=== PATIENT | female | born 1950 | race Caucasian/White ===

== ENCOUNTER → 2017-07-18 | Outpatient (CLI) | payer MEDICARE, BC | LOC: GMAL 10:10 | PROVIDERS: ATTEND Family Medicine | DX: E53.8 Deficiency of other specified B group vitamins (principal); R53.83 Other fatigue; M25.50 Pain in unspecified joint; E55.9 Vitamin D deficiency, unspecified ==

== ENCOUNTER → 2017-09-24 | Outpatient (CLI) | payer MEDICARE, BC | END | disposition home or self-care (01) | LOC: GMAL 17:23 | PROVIDERS: ATTEND Family Medicine | DX: M25.50 Pain in unspecified joint (principal); R51 Headache ==

== ENCOUNTER → 2017-09-26 | Outpatient (CLI) | payer MEDICARE, BC ==
--- NOTE | 2017-09-26 20:25 | MRI ---
EXAM DESCRIPTION: Brain w/wo Contrast CLINICAL HISTORY: HEADACHE COMPARISON: CT head 09/12/2014 TECHNIQUE: Multiplanar images of the brain were obtained without and with the administration of intravenous contrast FINDINGS: Scattered foci of increased T2 signal intensity do not exert significant mass effect on surrounding structures. No sagittal FLAIR sequences are submitted but there are corresponding low signal foci on T1-weighted images and some of these are adjacent to the corpus callosum and have a radiating pattern suggestive of Farooq's fingers. Multiple sclerosis is not excluded. None enhance abnormally.. No other abnormal enhancement is seen. The paranasal sinuses are clear. The IACs and CP angles appear normal. There is no evidence of acute mass, mass effect, midline shift or hemorrhage. No focal abnormal extra-axial fluid collection is seen. The ventricles, basal cisterns and extra-axial fluid spaces are normal in size and configuration. Brain parenchymal signal is otherwise normal. IMPRESSION: No acute abnormalities. Multiple sclerosis is not excluded. Alternatively, findings could reflect sequela of prior insult, possibly on the basis of small vessel disease. Electronically signed by: Albaro Llanes 09/26/2017 8:24 PM [facility]
== END ==
LOC: MRI 14:56
PROVIDERS: ATTEND Family Medicine
DX: R51 Headache (principal)

== ENCOUNTER → 2017-11-25 | Outpatient (CLI) | payer MEDICARE, BC | LOC: GMAL 11:33 | PROVIDERS: ATTEND Family Medicine | DX: R53.83 Other fatigue (principal) ==

== ENCOUNTER → 2017-12-23 | Outpatient (CLI) | payer MEDICARE, BC | LOC: GMATM 15:05 | PROVIDERS: ATTEND Nurse Practitioner Family | DX: J06.9 Acute upper respiratory infection, unspecified (principal) ==

== ENCOUNTER → 2018-02-14 | Outpatient (CLI) | payer MEDICARE ==
--- NOTE | 2018-02-14 11:34 | CT ---
EXAM DESCRIPTION: Abdoment/Pelvis w/o Contrast CLINICAL HISTORY: ABD PAIN COMPARISON: None Available. TECHNIQUE: Contiguous axial images of the abdomen and pelvis were obtained followed by reconstruction images. This exam was performed according to our departmental dose-optimization program, which includes automated exposure control, adjustment of the mA and/or kV according to patient size and/or use of iterative reconstruction technique. FINDINGS: Gallbladder is surgically absent. There is heterogeneous decreased attenuation of the liver that may reflect fatty infiltration. There are postoperative changes. Moderate stool is in the colon. No other acute abnormality. There is no hydronephrosis or renal stones. Adrenal glands are within normal limits. Aorta is of normal caliber and tapering. There is no free fluid in the abdomen or pelvis. There is no bowel obstruction. There is no stranding of the mesenteric fat to suggest an inflammatory response. IMPRESSION: No acute intra-abdominal abnormality. Electronically signed by: Albaro Llanes 02/14/2018 11:32 AM CDT
== END ==
LOC: LAB.O 10:39
PROVIDERS: ATTEND Nurse Practitioner Family
DX: R35.0 Frequency of micturition (principal); R10.84 Generalized abdominal pain

== ENCOUNTER → 2018-06-22 | Outpatient (CLI) | payer MEDICARE | LOC: GMAJ 17:44 | PROVIDERS: ATTEND Family Medicine | DX: E55.9 Vitamin D deficiency, unspecified (principal) ==

== ENCOUNTER 2018-07-03 05:45 | Day surgery (SDC) | payer MEDICARE ==
--- NOTE | 2018-07-02 17:25 | SSS ---
CHIEF COMPLAINT: Abdominal bloating and due for screening colonoscopy. HISTORY OF PRESENT ILLNESS: Ms. Jones is a 68 year-old female who presented to my office for routine followup. It was noted that she was due for a colonoscopy. She has been experiencing some abdominal bloating and distention, but no blood in her stool or other changes in her bowel habits. She had a colonoscopy by Dr. Hatch in 2000 that showed no polyps. She had a colonoscopy by this physician in August of 2003 that was also unremarkable. She had a colonoscopy by Dr. Simmons where she had a small polyp removed form her cecum and also had melanosis coli in 2008. She had a colonoscopy by Dr. Zendejas in April of 2014 that showed multiple tubular adenomas that were removed and melanosis coli. She is due for a repeat colonoscopy. Risks and benefits were discussed and she is agreeable with proceeding. PAST MEDICAL HISTORY: 1. Hyperlipidemia. 2. Hypertension. She had a nuclear stress test in September 2009 that showed normal perfusion. She had an echocardiogram in September 2010 that showed an ejection fraction of 56% with left atrium of 3.7 cm and minima left ventricular hypertrophy and a calcified mitral valve. 3. Longstanding dyspepsia. 4. H. pylori positive in June of 2008 with documented clearance on . 5. WHITNEY diagnosed with biopsy at the time of her laparoscopic cholecystectomy in May of 2011. 6. Left basilic vein thrombosis after 4 IV sites in her left arm over 24 hours. 7. Chronic headaches. 8. Chronic neck pain. 9. History of breast cancer diagnosed in March of 2017. 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 She completed radiation therapy in May 2017. Her is her medical Power of Ec Teacher. She does not have an Advance Directive. PAST SURGICAL HISTORY: 1. Appendectomy in with her hysterectomy and bilateral salpingo- oophorectomy at the time of the hysterectomy. 2. Laparoscopic cholecystectomy in May 2011. 3. Left knee arthroscopy by Dr. Sims where they worked on her lateral meniscus in 2003. 4. Hemorrhoidectomy. 5. Right breast lumpectomy in 1989. 6. Bladder suspension in September 2008. 7. Hemorrhoidal treatment by laser in August and September 2010. 8. Left breast stereotactic vacuum assisted biopsy of ductal carcinoma in situ , estrogen receptor positive, progesterone receptor negative by Dr. Oliver Carrillo in March 2017. 9. Left breast lumpectomy for DCIS by Dr. Oliver Carrillo in March 2017. 10. Right labial sebaceous cyst drained in her office by Dr. Carmen Lundy on 08/08/17. 11. Colonoscopies as above. CURRENT MEDICATIONS: 1. Venlafaxine. 2. Lotrel. 3. Metoprolol. 4. Estazolam. 5. Tamoxifen. 6. Nortriptyline. ALLERGIES: FAMILY HISTORY: Father at 56 from a myocardial infarction. Mother at 64 from a myocardial infarction. She has 2 brothers, one from colon cancer. Three sisters, one from breast cancer. She has 1 son who has a history of ITT and 1 daughter who is healthy with asthma. SOCIAL HISTORY: She is retired. She was an x-ray electroplating technician at one time. She has been and remarried. She does not smoke but smoked in the past. She smoked for only 5 years having quit in 1987. She does not consume alcohol. REVIEW OF SYSTEMS: Negative except as per History of Present Illness. PHYSICAL EXAMINATION: VITAL SIGNS: Blood pressure 124/60, height 5 feet 8 inches tall, weight 157, pulse 87. GENERAL: She is awake and alert in no acute distress. HEENT: Unremarkable. NECK: Supple. CHEST: Lungs are clear. CARDIOVASCULAR: Regular rate and rhythm. ABDOMEN: Soft, non-tender. EXTREMITIES: Without edema. RECTAL: Exam is deferred until time of colonoscopy. ASSESSMENT: 1. Family history of colon cancer in a brother. 2. Need for screening colonoscopy. 3. History of colon polyps. PLAN: Colonoscopy on 07/03/18. #[id number] [facility]
[2018-07-03] MEDS ORDERED: LACTATED RINGERS 1,000 ML ONE (06:22)
[2018-07-03] MEDS ORDERED: PROPOFOL 200 MG/20 ML VIAL IV ONE (07:00)
[2018-07-03] MEDS ORDERED: LIDOCAINE 1% 10 ML VIAL INJ ONE (07:00)
[2018-07-03] MEDS ORDERED: LACTATED RINGERS 1,000 ML BAG IV ONE (07:10)
[2018-07-03] MEDS ORDERED: fentaNYL CITRATE INJ 50 MCG/ML AMP ONE (07:20)
--- NOTE | 2018-07-03 08:57 | OP ---
DATE OF PROCEDURE: 07/03/18 PREOPERATIVE DIAGNOSIS: 1. History of colonic polyps. 2. Family history of colon cancer. POSTOPERATIVE DIAGNOSIS: 1. Melanosis coli. 2. Internal and external hemorrhoids. 3. Otherwise normal colonoscopy to the cecum. PROCEDURE: 1. Colonoscopy. SURGEON: Nate Hughes MD. ESTIMATED BLOOD LOSS: None. COMPLICATIONS: No immediate complications. ANESTHESIA: Propofol 430 mg and fentanyl 2 mL administered via Cipriano Uribe CRNA. TECHNIQUE: After informed consent was obtained from the patient, the patient was taken to the Endoscopy Suite and placed in the left lateral decubitus position. Incremental doses of propofol and fentanyl were given until adequate sedation was obtained. Digital rectal examination was performed, which other than the hemorrhoids was unremarkable. The colonoscope was then advanced into the patient's rectum and up through the sigmoid, descending, transverse and ascending colon to the level of the cecum. Relatively extensive looping was noted in the ascending colon, but the cecum was ultimately reached by placing her on her back and lots of left lower quadrant pressure. The terminal ileum could not be entered. Photogram of the cecum was taken. Overall, the bowel prep was quite good. The melanosis coli was quite evident in the proximal colon. It was much less evident in her distal colon. The colonoscope was then slowly withdrawn taking great care to visualize all judge of the colon in a 360 degree fashion as best as possible. The looping made it a little bit difficult to visualize about a 5 cm portion of her proximal transverse colon. However, I went through this area 3 to 4 times and did not see anything obvious. The rest of the colon was easy to visualize. Retroflexion was performed and showed grade 2 to 3 internal hemorrhoids. The colonoscope was then unretroflexed and air was suctioned out of the patient's rectum. The colonoscope was removed from the patient. The patient tolerated the procedure well. PLAN: Followup in my office in 7 to 10 days. We will consider repeat endoscopy for screening purposes only in 8 to 10 years. #[id number] [facility]
[2018-07-03 09:14] VITALS: BP 123/72; TEMP 97.8; O2SAT 98
== END 2018-07-03 09:10 | disposition home or self-care (01) ==
LOC: AMB 05:45
PROVIDERS: ATTEND Family Medicine
DX: Z09 Encounter for follow-up examination after completed treatment for conditions other than malignant neoplasm (principal); K63.89 Other specified diseases of intestine; K64.4 Residual hemorrhoidal skin tags; K64.2 Third degree hemorrhoids; I10 Essential (primary) hypertension; K21.9 Gastro-esophageal reflux disease without esophagitis; E78.5 Hyperlipidemia, unspecified; G89.29 Other chronic pain; M54.2 Cervicalgia; Z86.010 Personal history of colon polyps; Z87.891 Personal history of nicotine dependence; Z80.0 Family history of malignant neoplasm of digestive organs; Z79.899 Other long term (current) drug therapy
CPT/HCPCS: 00811; 45378; J3010; J3490; J7120

== ENCOUNTER → 2018-12-23 | Outpatient (CLI) | payer MEDICARE | LOC: GMAHI 17:58 | PROVIDERS: ATTEND Nurse Practitioner Family | DX: L65.9 Nonscarring hair loss, unspecified (principal) ==

== ENCOUNTER → 2019-02-17 | Outpatient (CLI) | payer MEDICARE ==
--- NOTE | 2019-02-18 11:06 | CT ---
EXAM DESCRIPTION: Internal Auditory Canal CT CLINICAL HISTORY: 68 years Female, SUPERIOR CANAL DEHISCENCE COMPARISON: None. TECHNIQUE: This exam was performed according to our departmental dose-optimization program, which includes automated exposure control, adjustment of the mA and/or kV according to patient size and/or use of iterative reconstruction technique. Thin section high-resolution images imaging of the petrous ridges with MPR thin section reformatted axial and coronal images. FINDINGS: No gross soft tissue abnormality on this thin section noncontrast imaging of the petrous ridges and adjacent posterior fossa is seen. On the right, several small lateral posterior superior mastoid air cells are opacified consistent with minimal mastoiditis. This does not extend into the region of the mastoid tip or medially towards the epitympanic recess or middle ear cavity. The external auditory canal middle ear cavity and epitympanic recess and middle ear ossicles are normal in appearance with normal aeration. The cochlear and vestibular apparatus and IAC appear normal. There is no evidence of superior canal dehiscence best visualized on the thin section coronal imaging with the superior margin of the petrous ridge and layer of bone lying cephalad to the superior canal with no uncovering of the semicircular canal. The course of the facial nerve canal is normal. On the left, the mastoid air cell system and middle ear cavity and epitympanic recess are unremarkable without evidence of mastoiditis or air cell opacification. The IAC cochlear apparatus is normal. The posterior and superior semicircular canals are normal with no evidence of superior canal dehiscence. The left lateral semicircular canal is abnormal in appearance and appears to represent an enlargement and extension of the utricle of the semicircular canal apparatus. A well-formed lateral semicircular canal is not identified as noted on the opposite right side. The soft tissue defect of the utricle is estimated at 6 x 7 x 3.5 mm in diameter and approximately twice the size as that seen on the right. 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 The superior and posterior semicircular canal appear normally formed with no evidence of dehiscence. IMPRESSION: 1. Essentially normal bony anatomy and no evidence of superior canal dehiscence on the right with the small amount of superior lateral and posterior mastoiditis and opacification. 2. 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 No evidence of superior canal dehiscence noted. 3. The cochlear apparatus as well as middle ear structures and external auditory canals are normal bilaterally. Electronically signed by: Christian Miller MD 02/18/2019 11:04 AM CDT
== END ==
LOC: CT 13:06
PROVIDERS: ATTEND Otolaryngology Otology & Neurotology
DX: H93.A9 Pulsatile tinnitus, unspecified ear (principal); Q17.8 Other specified congenital malformations of ear; H83.8X2 Other specified diseases of left inner ear

== ENCOUNTER → 2019-10-25 | Outpatient (CLI) | payer MEDICARE ==
--- NOTE | 2019-10-25 14:41 | MRI ---
EXAM DESCRIPTION: Knee,Left CLINICAL HISTORY: Pain in left knee COMPARISON: None Available. TECHNIQUE: MRI of the left knee is performed according to our usual protocol with multiplanar multi sequence imaging. FINDINGS: Moderate knee joint effusion. Complex popliteal cyst with multiple loculations. Ganglion cyst extends cephalad from the joint line posteriorly and measures 4.4 cm x 1.8 cm in size and is likely related to large lateral meniscus tear. The lateral meniscus is markedly attenuated mid body and posterior horn. I do not detect displaced fragment suspected there may have been prior partial meniscectomy. If not this is health and safety representative of a very severe chronic degenerative tear. Extensive grade 4 chondrosis on both sides of the joint in the lateral compartment. Degenerative mucoid change of the medial meniscus without full-thickness tear. Moderate grade 2/3 chondrosis medial compartment. Extensive grade 3/4 chondrosis involving the patellofemoral compartment. Cruciate and collateral ligaments intact. IMPRESSION: 1. Severe degenerative changes lateral compartment including lateral meniscus tear with related multilocular ganglion/parameniscal cyst. This cyst is the palpable abnormality along with a complex popliteal cyst. Electronically signed by: Ernesto Eli MD 10/25/2019 2:40 PM [facility]
== END ==
LOC: MRI 10:52
PROVIDERS: ATTEND Family Medicine
DX: M17.12 Unilateral primary osteoarthritis, left knee (principal); S83.282A Other tear of lateral meniscus, current injury, left knee, initial encounter; M71.22 Synovial cyst of popliteal space [Baker], left knee

== ENCOUNTER → 2020-01-31 | Outpatient (CLI) | payer MEDICARE | LOC: GMAL 15:59 | PROVIDERS: ATTEND Family Medicine | DX: R53.83 Other fatigue (principal); R60.0 Localized edema ==

== ENCOUNTER 2020-05-04 11:40 | Emergency (ER) | payer MEDICARE ==
[2020-05-04] MEDS ORDERED: MORPHINE SULFATE INJ 10 MG/ML VIAL IV ONE (11:51)
[2020-05-04] MEDS ORDERED: ASPIRIN (CHEWABLE) 81 MG TAB PO ONE (11:51)
[2020-05-04] MEDS ORDERED: ONDANSETRON INJ 4 MG/2 ML VIAL IV ONE (11:51)
--- NOTE | 2020-05-04 11:54 | ED.PDOC ---
History of Present Illness - General Time Seen by Provider: 05/04/20 11:45 Source: patient, RN notes reviewed, Vital Signs reviewed Exam Limitations: no limitations - History of Present Illness Initial Comments: Patient is a 69-year-old female who presents the ED for chest pain. States she has had central chest pain that radiates to her left chest for the past 5 days. Has felt short of breath at times, but denies nausea, cough or fever. Denies any previous cardiac history. Pain is no worse with exertion or movement. Allergies/Adverse Reactions: Allergies Gemfibrozil [From Lopid] Allergy (Unknown, Verified 05/04/20 13:00) found list on a old H&P Non Fat Milk Allergy (Verified 05/04/20 13:00) Home Medications: Ambulatory Orders Amlodipine Besylate-Benazepril [Lotrel 5-20 mg] 1 cap PO DAILY 03/19/14 Esomeprazole Magnesium [Nexium] 40 mg PO DAILY 03/19/14 Metoprolol Tartrate [Lopressor] 50 mg PO DAILY 03/19/14 Venlafaxine HCl [Effexor] 37.5 mg PO DAILY 03/19/14 Amoxicillin [Amoxil] 500 mg PO TID 06/29/18 B-Complex W/ Folic Acid [B Complex] 1 tab PO BEDTIME 06/29/18 Cholecalciferol [D 1000] 1,000 unit PO DAILY 06/29/18 Docusate Sodium [Stool Softener] 100 mg PO DAILY 06/29/18 Estazolam 1 - 1.5 mg PO BEDTIME 06/29/18 Nortriptyline HCl [Nortriptyline Hydrochlori] 50 mg PO BEDTIME 06/29/18 Probiotic Product [Probiotic] 1 tab PO DAILY 06/29/18 Tamoxifen Citrate 20 mg PO DAILY 06/29/18 Review of Systems - Review of Systems Constitutional: Denies: chills, fever, weakness EENTM: Denies: nose congestion, throat pain Respiratory: States: short of breath. Denies: cough, wheezing Cardiology: States: chest pain. Denies: edema, palpitations, syncope Gastrointestinal/Abdominal: Denies: abdominal pain, diarrhea, nausea, vomiting Musculoskeletal: Denies: back pain, neck pain Skin: States: no symptoms reported Neurological: Denies: headache, paresthesia Hematologic/Lymphatic: Denies: blood clots, easy bleeding All other Systems: Reviewed and Negative Past Medical History (General) - Patient Medical History Hx Seizures: No Hx Stroke: No Hx Dementia: No Hx Asthma: No Hx of COPD: No Hx Cardiac Disorders: No Hx Congestive Heart Failure: No Hx Pacemaker: No Hx Hypertension: Yes Hx Thyroid Disease: No Hx Diabetes: No Hx Gastroesophageal Reflux: No Hx Renal Disease: No Hx of HIV: No Hx MRSA: No MRSA Source:: Wound - Vaccination History Hx Influenza Vaccination: Yes - Social History Hx Tobacco Use: Yes Hx Alcohol Use: No Hx Substance Use: No Hx Physical Abuse: No Hx Emotional Abuse: No Family Medical History - Family History Mother Family History: Unknown Physical Exam - Physical Exam General Appearance: Alert, Comfortable, No apparent distress Neck: full range of motion, supple Respiratory: lungs clear, normal breath sounds, no respiratory distress, no accessory muscle use, respiratory distress, other - Chest wall is tender to palpation in the substernal and left anterior chest areas Cardiovascular/Chest: normal peripheral pulses, regular rate, rhythm, no edema, no murmur Gastrointestinal/Abdominal: non tender, soft, no pulsatile mass Back Exam: no CVA tenderness, no vertebral tenderness Extremity: normal range of motion, non-tender, normal inspection, no pedal edema Neurologic: no motor/sensory deficits, alert, normal mood/affect Skin Exam: normal color, warm/dry Progress - Progress Progress: 05/04/20 1255 Patient presents with several day history of chest tightness and states her arms and legs feel heavy. Vital signs are reassuring. Chest x-ray EKG and labs are reassuring including a normal troponin. Since her pain is been going on for several days I doubt ACS at this time. Patient feels improved and comfortable going home. I have asked her to follow-up with her PCP in 1 to 2 days for continued outpatient evaluation and referral for further cardiology evaluation. Strict return precautions given. - Results/Orders Results/Orders: EKG- NSR, rate 97, nml intervals, no ST abnormality Chest xray EXAM DESCRIPTION: Chest,1 View CLINICAL HISTORY: 69 years Female, chest pain COMPARISON: March 19, 2014 FINDINGS: One view/radiograph Heart size and pulmonary vessels are within normal limits. There is no pneumothorax or pleural effusion. The lungs are clear bilaterally. The soft tissues are unremarkable. No acute osseous findings. IMPRESSION: No acute cardiopulmonary abnormality. 05/04/20 11:50 IV:Start .ONCE 05/04/20 12:00 EKG .ONCE Laboratory Results - last 24 hr 05/04/20 05/04/20 05/04/20 11:50 11:50 11:50 WBC 6.1 RBC 4.17 L Hgb 12.1 Hct 36.2 MCV 86.8 MCH 29.1 MCHC 33.5 RDW 14.2 Plt Count 211 MPV 7.8 Absolute Neuts (auto) 3.40 Absolute Lymphs (auto) 2.10 Absolute Monos (auto) 0.40 Absolute Eos (auto) 0.20 Absolute Basos (auto) 0.00 Neutrophils % 56.2 Lymphocytes % 34.4 Monocytes % 6.3 Eosinophils % 2.5 Basophils % 0.6 Sodium 132 L Potassium 3.9 Chloride 100 L Carbon Dioxide 21 Anion Gap 14.9 BUN 12 Creatinine 1.17 BUN/Creatinine Ratio 10.3 Random Glucose 120 H Serum Osmolality 265.5 L Calcium 8.9 Total Bilirubin 0.6 AST 55 H ALT 37 Alkaline Phosphatase 57 Troponin I 0.02 B-Natriuretic Peptide 29.7 Serum Total Protein 7.1 Albumin 4.2 Globulin 2.9 Albumin/Globulin Ratio 1.4 Lipase 43 Departure - Departure Clinical Impression: Atypical chest pain Time of Disposition: 12:57 Disposition: Discharge to Home or Self Care Condition: Good Departure Forms: ED Discharge - Pt. Copy, Patient Portal Self Enrollment Instructions: Chest Pain (DC) Diet: resume usual diet Activity: increase activity as tolerated Referrals: Nate Hughes III, MD [Primary Care Provider] - 1-2 Days Home Medications: Ambulatory Orders Amlodipine Besylate-Benazepril [Lotrel 5-20 mg] 1 cap PO DAILY 03/19/14 Esomeprazole Magnesium [Nexium] 40 mg PO DAILY 03/19/14 Metoprolol Tartrate [Lopressor] 50 mg PO DAILY 03/19/14 Venlafaxine HCl [Effexor] 37.5 mg PO DAILY 03/19/14 Amoxicillin [Amoxil] 500 mg PO TID 06/29/18 B-Complex W/ Folic Acid [B Complex] 1 tab PO BEDTIME 06/29/18 Cholecalciferol [D 1000] 1,000 unit PO DAILY 06/29/18 Docusate Sodium [Stool Softener] 100 mg PO DAILY 06/29/18 Estazolam 1 - 1.5 mg PO BEDTIME 06/29/18 Nortriptyline HCl [Nortriptyline Hydrochlori] 50 mg PO BEDTIME 06/29/18 Probiotic Product [Probiotic] 1 tab PO DAILY 06/29/18 Tamoxifen Citrate 20 mg PO DAILY 06/29/18
--- NOTE | 2020-05-04 12:23 | RAD ---
EXAM DESCRIPTION: Chest,1 View CLINICAL HISTORY: 69 years Female, chest pain COMPARISON: March 19, 2014 FINDINGS: One view/radiograph Heart size and pulmonary vessels are within normal limits. There is no pneumothorax or pleural effusion. The lungs are clear bilaterally. The soft tissues are unremarkable. No acute osseous findings. IMPRESSION: No acute cardiopulmonary abnormality. Electronically signed by: Robert Yo MD 05/04/2020 12:21 PM CDT
[2020-05-04 13:15] VITALS: BP 139/61; TEMP 97.3; O2SAT 98
== END 2020-05-04 13:16 | disposition home or self-care (01) ==
LOC: ER 11:40
DX: R07.89 Other chest pain (principal); I10 Essential (primary) hypertension; Z87.891 Personal history of nicotine dependence
CPT/HCPCS: 71045; 80053; 83690; 83880; 84484; 85025; 93005; J2270; J2405

== ENCOUNTER → 2020-06-07 | Outpatient (CLI) | payer MEDICARE ==
--- NOTE | 2020-06-07 20:06 | US ---
EXAM DESCRIPTION: Abdomen,Complete: Ultrasound. CLINICAL HISTORY: 69 years FemaleABNORMAL RESULTS OF LIVER FUNCTION STUDIES COMPARISON: None Available. TECHNIQUE: Transabdominal scanning: grayscale and Doppler modes. FINDINGS: Gallbladder: Surgically removed. No fluid in the gallbladder fossa. Abdomen was Non-tender with transducer pressure. Common bile duct: caliber 5.7 mm upper normal limits. Liver: Increased echogenicity; contour liver capsule smooth where seen. No fluid around the liver. Intrahepatic biliary ducts normal caliber. Doppler hepatopedal flow and normal caliber portal vein 0.2 mm.. Long axis right lobe 14.0 cm. Pancreas: normal size and increased echogenicity. Duct not seen. Complete abdominal aorta: Normal caliber from the proximal segment to the distal bifurcation.. IVC: visualized and normal caliber. Right kidney: long axis measures 8.2 cm; volume 85.1 mL.. Normal cortical echogenicity. Normal cortical thickness. No echogenic stones; no hydronephrosis. Minimal capsular lobulation. Left kidney: long axis measures 8.6 cm; volume 105.2 mL.. Minimally increased cortical echogenicity.. Normal cortical thickness. No echogenic stones; no hydronephrosis. Minimal capsular lobulation. Spleen: Normal. No focal lesions.. 9.7 cm long axis. Other: None. IMPRESSION: 1. Fatty liver but not enlarged. Physiologic vascularity. Otherwise unremarkable. Fatty pancreas but normal size. Duct not seen. No ascites. 2. Gallbladder surgically absent. No fluid in the gallbladder fossa. Upper normal caliber common bile duct. Spleen is unremarkable. 3. Bilateral kidneys with age-related changes but otherwise negative. Normal caliber of the abdominal aorta and IVC. Electronically signed by: Albaro Romano MD 06/07/2020 8:04 PM CDT
== END | disposition home or self-care (01) ==
LOC: US 08:29
PROVIDERS: ATTEND Family Medicine
DX: R94.5 Abnormal results of liver function studies (principal)

== ENCOUNTER → 2020-08-03 | Outpatient (CLI) | payer MEDICARE ==
--- NOTE | 2020-08-03 11:46 | CT ---
EXAM DESCRIPTION: CTA Chest CLINICAL HISTORY: 70 years Female, COUGH TECHNIQUE: Volumetric CT angiographic data acquisition of the thorax was obtained. Standard axial and CT angiographic MIP sagittal and coronal images are submitted. This exam was performed according to our departmental dose-optimization program, which includes automated exposure control, adjustment of the mA and/or kV according to patient size and/or use of iterative reconstruction technique. COMPARISON: March 19, 2014 FINDINGS: The thyroid is unremarkable. No axillary adenopathy. Normal caliber thoracic aorta. No pericardial effusion. No evidence of acute process in the visualized upper abdomen. No mediastinal adenopathy. No pulmonary embolus. No pneumothorax. No pleural effusion. No focal consolidation. No suspicious pulmonary nodule. There are subtle central perihilar groundglass airspace opacities. No acute or suspicious osseous abnormality. Scattered degenerative changes present. IMPRESSION: 1. No pulmonary embolus. 2. Subtle central perihilar groundglass airspace opacities; pulmonary edema or pneumonia. Electronically signed by: Robert Yo MD 08/03/2020 11:45 AM CDT
== END ==
LOC: CT 10:03
PROVIDERS: ATTEND Family Medicine
DX: Z01.812 Encounter for preprocedural laboratory examination (principal); R91.8 Other nonspecific abnormal finding of lung field; R05 Cough; R07.2 Precordial pain; R06.02 Shortness of breath

== ENCOUNTER → 2020-09-28 | Outpatient (CLI) | payer MEDICARE | LOC: GMAL 17:12 | PROVIDERS: ATTEND Family Medicine | DX: M25.50 Pain in unspecified joint (principal); Z79.899 Other long term (current) drug therapy ==